=== PATIENT | male | born 2000 | race Caucasian/White ===

== ENCOUNTER 2022-07-24 11:29 | Emergency (ER) | payer OTHER, SELFPAY ==
--- NOTE | ~2022-07-24 | XR_ITS ---
EXAMINATION: XR finger 5th RT min 2V DATE: 07/24/2022 12:34 INDICATION: Pain post injury to the proximal phalanx of the right fifth digit TECHNIQUE: Dorsal palmar, lateral and 2 oblique views of the right fifth digit were obtained COMPARISON: None FINDINGS: Oblique extra articular fracture at the distal diaphysis of the right fifth proximal phalanx. There i s one cortical width radial and 8 degrees palmar/ulnar angulation. No other fractures identified. Jenna nt spaces are normal. Mild soft tissue swelling about the base of the fifth digit. IMPRESSION: 1. Minimally displaced and angulated extra articular fracture at the distal diaphysis of the right fi fth possible phalanx. Reviewed, dictated and finalized at location A. [employer] IMPRESSION: 1. Minimally displaced and angulated extra articular fracture at the distal stephane physis of the right fifth possible phalanx.
[2022-07-24 11:42] VITALS: BP 119/64; PULSE 71; RESP 16; TEMP 36.9; O2SAT 100
--- NOTE | 2022-07-24 13:58 | ED.UPPEXIN ---
HPI - Extremity Injury (Upper) General Chief Complaint: Extremity Injury, Upper Stated Complaint: Finger Injury Time Seen by Provider: 07/24/22 13:58 Source: patient, family, RN notes reviewed and old records reviewed Mode of arrival: ambulatory Limitations: no limitations History of Present Illness HPI narrative: 22-year-old male accompanied by mother presents to [facility] with injury to right 5th finger, woke up this morning noticed right 5th finger with obvious deformity swelling and some discomfort is unsure of exact mode of injury due to alcohol intake last night. Patient reports concern for dislocation with obvious deformity to finger. Patient has brisk capillary refill to right 5th finger nail bed, strong right radial pulse present, ROM decreased. MD complaint: injury to: right and finger (5th finger) Handedness: left Severity scale (1-10): 7 Treatments prior to arrival: NSAIDS and other (leeft over Vicodin X1) Related Data Home Medications Medication Instructions Recorded Confirmed fluticasone propionate 44 2 puff inhalation BID 07/24/22 07/25/22 mcg/actuation HFA aerosol inhaler (Flovent HFA) fluticasone propionate 50 1 spray intranasal BID 07/24/22 07/25/22 mcg/actuation nasal spray,suspension Allergies Allergy/AdvReac Type Severity Reaction Status Date / Time Penicillins Allergy Unknown Unknown Verified 07/24/22 12:35 Review of Systems Review of Systems: CONSTITUTIONAL: Denies fever, chills, or sweats. EYES: Denies visual changes, redness, or discharge. ENT: Denies rhinorrhea, congestion, sore throat, or otalgia. CARDIOVASCULAR: Denies chest pain, palpitations, or edema. RESPIRATORY: Denies cough or dyspnea. GASTROINTESTINAL: Denies abdominal pain, nausea, vomiting, or diarrhea. GENITOURINARY: Denies dysuria or hematuria. SKIN: Denies rash or itching. MUSCULOSKELETAL: Denies back pain,positive for right 5th finger injury with pain and decreased mobility with obvious deformity, or myalgia. NEUROLOGIC: Denies headache, numbness, or weakness. PSYCHIATRIC: Denies anxiety or depression. All systems reviewed & are unremarkable except as noted in HPI and below PMFSH Past Medical History Medical History (Updated 07/29/22 @ 08:09 by Betty Steele NP) Asthma Seasonal allergies Surgical History Surgical History (Updated 07/29/22 @ 07:55 by Betty Steele NP) History of tonsillectomy and adenoidectomy Social History Social History (Updated 07/29/22 @ 07:56 by Betty Steele NP) Smoking status: Never smoker Alcohol intake: current Substance use type: does not use Gender identity (if verbalized by the patient): Male Comments At time of signature, agree with nursing past medical, surgical, social and family history. There is no relevant family history pertinent to the presenting complaint Exam Narrative: GENERAL: Well-appearing, well-nourished, and in no acute distress. HEAD: Normocephalic, atraumatic. EYES: PERRLA and EOMI. ENT: Nares clear, no rhinorrhea or epistaxis. Mucous membranes moist.TM normal with good light reflex, throat pink with no lesions or swelling. NECK: Supple. no lymphadenopathy CHEST: Clear to auscultation. No respiratory distress.SAO2 100% on room air HEART: Regular rate and rhythm. No murmur heard. Normal peripheral pulses. ABDOMEN: Soft, nontender, nondistended, normal active bowel sounds. EXTREMITIES: Normal range of motion. No edema. SKIN: Warm, dry, no rash. NEURO: No focal deficits. Alert and oriented x3. Course Course Emergency Course: Patient is aware of diagnosis, understands and agrees to treatment plan.? Anticipatory guidance given.? Patient agrees to follow-up as directed and is aware of reasons to seek care at the emergency department. Portions of this record may have been created with voice recognition software Level of Care: [facility] Visit Vital Signs Vital signs: Vital Signs Temperature 36.9 C 07/24/22 11:42 Pulse R
== END 2022-07-24 14:26 | disposition home or self-care (01) ==
PROVIDERS: Emergency Provider Registered Nurse; PCP Pediatrics
DX: S62.616A Displaced fracture of proximal phalanx of right little finger, initial encounter for closed fracture (principal); X58.XXXA Exposure to other specified factors, initial encounter; J45.909 Unspecified asthma, uncomplicated; Z86.16 Personal history of COVID-19
CPT/HCPCS: 29130; 73140; 99203; G0463